=== PATIENT | female | born 1985 | race Caucasian/White ===

== ENCOUNTER 2021-01-20 14:59 | Emergency (ER) | payer SELFPAY ==
[~2021-01-20] VITALS: Ht 175.3 cm; Wt 75.0 kg
[2021-01-20 15:04] VITALS: BP 124/84
[2021-01-20] MEDS ORDERED: LORAZEPAM 2MG/ML CPJ IM STA (17:20)
== END 2021-01-20 18:01 | disposition left against medical advice (07) ==
LOC: ER 14:59
DX: Z13.9 Encounter for screening, unspecified (principal)
CPT/HCPCS: 99283